=== PATIENT | male | born 1960 | race Caucasian/White ===

== ENCOUNTER 2017-07-06 06:44 | Day surgery (SDC) | payer BC ==
[2017-07-06] MEDS ORDERED: methylPREDNISolone ACET (DEPO) 40 MG/1 ML VIAL ONE (07:13)
[2017-07-06] MEDS ORDERED: THROMBIN (BOVINE) 5,000 UNIT VIAL TP ONE ×2 (07:14→09:30)
[2017-07-06] MEDS ORDERED: BUPIVACAINE HCL/PF 2.5 MG/ML - 30 ML VIAL IJ ONE (07:14)
[2017-07-06] MEDS ORDERED: LIDOCAINE 1%/EPI 1:100000 (20 ML MULTI DOSE VIAL) ONE (07:14)
[2017-07-06 07:29] VITALS: BMI 32.7
[2017-07-06] MEDS ORDERED: oxyCODONE HCL 10 MG SUSTAINED ACTING TABLET PO ONE (07:32)
--- NOTE | 2017-07-06 07:39 | HP ---
History & Physical Update - History History: No Change - Physical Physical: No Change - Assessment Assessment: No Change - Plan Plan: No Change
[2017-07-06] MEDS ORDERED: MIDAZOLAM HCL 2 MG/2 ML SINGLE DOSE VIAL ONE ×2 (07:45→08:40)
[2017-07-06] MEDS ORDERED: BUPIVACAINE HCL/PF 0.5% (5MG/ML) 10 ML VIAL ONE (07:45)
[2017-07-06] MEDS ORDERED: ceFAZolin SODIUM 1 GM VIAL ONE (08:52)
[2017-07-06] MEDS ORDERED: ONDANSETRON 4 MG/2 ML VIAL ONE (08:52)
[2017-07-06] MEDS ORDERED: DEXAMETHASONE SOD PHOSPHATE 4 MG/1 ML VIAL ONE (08:52)
[2017-07-06] MEDS ORDERED: LIDOCAINE 1%/EPI 1:100000 (50 ML MULTI DOSE VIAL) INF ONE (09:29)
[2017-07-06] MEDS ORDERED: GELATIN SPONGE,ABSORBABLE 1 GM PACKET TP ONE (09:31)
[2017-07-06] MEDS ORDERED: methylPREDNISolone ACET (DEPO) 40 MG/1 ML VIAL IM ONE (09:32)
[2017-07-06] MEDS ORDERED: BUPIVACAINE HCL/PF 0.25% (2.5MG/ML) 10 ML VIAL IJ ONE (10:58)
--- NOTE | 2017-07-06 11:33 | OP ---
Operative Note - Note: Operative Date: 07/06/17 Pre-Operative Diagnosis: L3-L4 herniated disc Operation: L3-L4 lalminectomy with micro disectomy/ventral dural tear with DuraGen patch Surgeon: Eddie Bell Radio Installer Automobile: Cate Chavez Anesthesiologist/WAITER AND CASHIER: Shirley Rodríguez Anesthesia: Spinal Specimens Removed: disc Estimated Blood Loss (mls): 50 Fluid Volume Replaced (mls): 1,100 Operative Report Dictated: Yes
--- NOTE | 2017-07-06 11:34 | SURG ---
Surgery Olive Brine Tester Note Olive Brine Tester: Cate Chavez PA-C Date of Service: 07/06/17 Diagnosis: L3-L4 disc herniation Procedure: L3-L4 laminectomy with micro discectomy/repair of ventral dural tear with DuraGen I was present for the entirety of the operative procedure. For further detail, please refer to operative report. Visit type - Case Type Case Type: Scheduled Admission - Emergency Emergency Visit: No - New patient This patient is new to me today: Yes Date on this admission: 07/06/17
[2017-07-06] MEDS ORDERED: ONDANSETRON 4 MG/2 ML VIAL IVPUSH PRN (11:57)
[2017-07-06] MEDS ORDERED: oxyCODONE HCL 5 MG TABLET PO PRN ×2 (11:57)
[2017-07-06] MEDS ORDERED: LACTATED RINGERS SOLUTION 1,000 ML IV SCH (12:00)
--- NOTE | 2017-07-06 12:06 | OP ---
DATE OF OPERATION: 07/06/2017 PREOPERATIVE DIAGNOSIS: Herniated disk, L3-L4. POSTOPERATIVE DIAGNOSIS: Herniated disk, L3-L4. PROCEDURES PERFORMED: 1. Laminectomy, L3-L4. 2. Removal of herniated disk. SURGEON: Eddie Bell MD CARE PROVIDER: CHAVO Patterson ESTIMATED BLOOD LOSS: 50 mL. INTRAVENOUS FLUIDS: Per Anesthesia. COMPLICATIONS: Dural tear repaired with Duragen patch and DuraSeal. DISPOSITION: The patient was brought to the PACU in stable condition. INDICATION FOR SURGERY: The patient is a 57-year-old gentleman who has been suffering from pain from his back down his legs. X-rays and MRI were completed which noted that he had a herniated disk at L3-4. He had gone through an exhaustive course of treatment for this, which included medications, physical therapy, as well as injections. Unfortunately, his pain continued to persist, despite all of this. At this point, risks, benefits, and alternatives were discussed, and the patient consented to surgery. OPERATIVE NOTE: The patient was brought to the operating room by the anesthesia staff. After appropriate patient identification was performed, spinal anesthesia was given. He was placed prone onto the OR table. The patient was able to position himself well to avoid all bony prominences. Two needles were placed in his back to josue off the L3-4 segment. An x-ray was taken to confirm this was correct. The needles were removed and 10 mL of lidocaine with epinephrine were injected into the back at this time. His back was prepped and draped in a sterile manner. At this point, a timeout was completed. An incision was made from the top of L3 down to the bottom of L4. Dissection was carried down to the fascia. The fascia was then split open at this timeand retractors were placed in At this point, a spinal needle was placed onto the L3 lamina to josue off the L3-4 level and x-rays taken to confirm this was correct. Needle was removed and the interspinous ligament at L3-4 was removed. Portions of the L3 and L4 spinous processes were removed. A portion of the L3 lamina was removed. Flavum was identified; it was removed. A complete decompression was performed by removing portions of the facet such that by the end of the procedure, both L4 nerve roots were well decompressed. At this point the nerve root was mobilized medially. The disk was adhered to the dura. In taking the disk off the dura, a small dural tear was noted, but it appeared to be under control. The disk herniation was noted and it was removed at this time. All bleeding was well controlled. A Duragen patch was placed. DuraSeal was placed over that. The fascia was closed with a number-1 Vicryl suture. The subcutaneous tissues were closed with 2-0 Vicryl suture. Skin was closed with 3-0 Monocryl suture. Dermabond was applied. Steri-Strips were applied. A sterile dressing was applied. The patient was placed supine on the OR bed and brought to the PACU in stable condition. Toy [id number]
[2017-07-06 15:06] VITALS: BP 124/69; PULSE 62; TEMP 98.1
== END 2017-07-06 13:45 | disposition home or self-care (01) ==
LOC: FASU 06:44
PROVIDERS: ATTEND Orthopaedic Surgery Orthopaedic Surgery of the Spine
PROC: 01NB0ZZ Release Lumbar Nerve, Open Approach (ICD-10-PCS; 2017-07-06)
PROC: 0SB20ZZ Excision of Lumbar Vertebral Disc, Open Approach (ICD-10-PCS; principal; 2017-07-06 09:13)
DX: M51.26 Other intervertebral disc displacement, lumbar region (principal)
CPT/HCPCS: 72100-TC; 76000-TC